=== PATIENT | female | born 2000 | race African-American/Black ===

== ENCOUNTER 2022-08-28 10:34 | Emergency (ER) | payer OTHER ==
[~2022-08-28] VITALS: Ht 165.1 cm; Wt 60.0 kg
[2022-08-28] MEDS ORDERED: NAPR-1176 MT (15:12)
[2022-08-28] MEDS ORDERED: CYCL10TA21 MT (15:12)
[2022-08-28] MEDS ORDERED: LIDO700A15 TP (15:12)
[2022-08-28] MEDS ORDERED: LIDOCAINE 5% PATCH TOP SCH (15:15)
[2022-08-28] MEDS ORDERED: KETOROLAC 15MG/ML VIAL IM ONE (15:15)
[2022-08-28] MEDS ORDERED: CYCLOBENZAPRINE 10MG TABLET PO ONE (15:15)
[2022-08-28 15:59] VITALS: BP 112/67
== END 2022-08-28 16:01 | disposition home or self-care (01) ==
LOC: ER 10:34
DX: M54.2 Cervicalgia (principal)
CPT/HCPCS: 81025; 96372; 99283; J1885